=== PATIENT | female | born 1950 | race Caucasian/White ===

== ENCOUNTER 2018-12-26 15:13 | Outpatient (CLI) | payer OTHER, SELFPAY ==
--- NOTE | 2018-12-26 14:31 | DI.RAD_ITS ---
SYMPTOMS/DIAGNOSIS: LEFT RIB PAIN, R07.81, PLEURODYNIA; NON-PRODUCTIVE COUGH X 2 WEEKS PA AND LATERAL CHEST: The heart is not enlarged. The lungs appear generally clear. No pleural effusion seen. On the lateral view, there is a question of increased radiodensity with a vaguely mass-like appearance projected posteriorly in the mid thorax. This finding does not appear to have been present on previous chest film of 12/11/13. The findings could be related to increasing osteophyte formation in the thoracic spine; however, the possibility of posteriorly located pulmonary or mediastinal mass or thoracic aortic aneurysm is not excluded. Chest CT requested for correlation. CONCLUSION: Questionable mass-like finding seen posteriorly on lateral film. Chest CT requested to exclude mass or aortic aneurysm.
== END 2018-12-26 15:33 ==
PROVIDERS: PCP Emergency Medicine; Visit Provider Nurse Practitioner Family
DX: R07.81 Pleurodynia (principal); R05 Cough; R91.8 Other nonspecific abnormal finding of lung field
CPT/HCPCS: 71046

== ENCOUNTER 2018-12-27 10:13 | Outpatient (CLI) | payer OTHER, SELFPAY ==
[2018-12-27 12:27] LABS: Anion Gap 9.9 mmol/L (3-11); BUN 19 mg/dL (7-18); CO2 28.1 mmol/L (21.0-32.0); CREATININE 0.89 mg/dL (0.55-1.02); Calcium 9.1 mg/dL (8.5-10.1); Chloride 103 mmol/L (98-107); Glucose 94 mg/dL (70-100); Potassium 4.1 mmol/L (3.5-5.1); Sodium 141 mmol/L (136-145)
== END 2018-12-27 10:33 ==
PROVIDERS: PCP Emergency Medicine; Visit Provider Nurse Practitioner Family
DX: R07.81 Pleurodynia (principal)
CPT/HCPCS: 36415; 80048

== ENCOUNTER 2018-12-30 00:50 | Outpatient (CLI) | payer OTHER, SELFPAY ==
--- NOTE | 2018-12-30 10:57 | DI.CT_ITS ---
SYMPTOMS/DIAGNOSIS: MASS-LIKE FINDING ON CHEST X-RAY, ? MASS, ? THORACIC AORTIC ANEURYSM; RIB PAIN ON LEFT SIDE, PLEURODYNIA, R07.81 CT OF THE CHEST: Comparison is made with a chest x-ray dated December,, which questioned a mass on the lateral view. Post IV contrast exam was performed. There is no evidence of a mass or adenopathy. There are mild emphysematous changes. No infiltrates or effusions are seen. There are severe degenerative changes in the mid thoracic spine. There are prominent endplate osteophytes, as well as endplate sclerosis. This corresponds to the area of increased density seen on chest x-ray. There are mild atherosclerotic changes of the aorta. The heart size is normal. There is some fatty replacement of the head of the pancreas. The liver, gallbladder, spleen, adrenals and upper portions of the kidneys are unremarkable. IMPRESSION: Mass questioned on chest x-ray corresponds to severe degenerative changes of the mid thoracic spine. There are mild emphysematous changes but no acute abnormality.
[2018-12-30] MEDS: Omnipaque 350 MG/ML 100 ML BTL IJ (11:31)
== END 2018-12-30 01:10 ==
PROVIDERS: PCP Emergency Medicine; Visit Provider Nurse Practitioner Family
DX: R07.81 Pleurodynia (principal); M47.814 Spondylosis without myelopathy or radiculopathy, thoracic region; J43.8 Other emphysema
CPT/HCPCS: 71260; J3490

== ENCOUNTER 2019-03-21 02:20 | Outpatient (CLI) | payer OTHER, SELFPAY ==
[2019-03-21 09:54] LABS: Hemoglobin A1C 5.6 % (4.5-6.2)
[2019-03-21 10:42] LABS: ALT 26 U/L (12-78); AST 18 U/L (15-37); Albumin 3.8 g/dL (3.4-5.0); Alkaline Phosphatase 87 U/L (46-116); Anion Gap 10.2 mmol/L (3-11); BUN 14 mg/dL (7-18); Bilirubin, Total 0.5 mg/dL (0.2-1.0); CO2 26.8 mmol/L (21.0-32.0); CREATININE 0.72 mg/dL (0.55-1.02); Calcium 8.9 mg/dL (8.5-10.1); Calculated LDL 205 mg/dL; Chloride 104 mmol/L (98-107); Cholesterol 285 mg/dL (50-200); Glucose 94 mg/dL (70-100); HDL Cholesterol 66 mg/dL (40-60); Potassium 4.9 mmol/L (3.5-5.1); Sodium 141 mmol/L (136-145); Total Protein 6.7 g/dL (6.4-8.2); Triglyceride 74 mg/dL (30-150)
== END 2019-03-21 02:40 ==
PROVIDERS: PCP Emergency Medicine; Visit Provider Nurse Practitioner Family
DX: E78.5 Hyperlipidemia, unspecified (principal); I10 Essential (primary) hypertension
CPT/HCPCS: 36415; 80053; 80061; 83721; 83036

== ENCOUNTER 2019-03-24 09:42 | Outpatient (CLI) | payer OTHER, SELFPAY ==
--- NOTE | 2019-03-24 09:00 | DI.RAD_ITS ---
SYMPTOMS/DIAGNOSIS: LT KNEE PAIN, NEW TRAUMA LEFT KNEE: Four views. Comparison 12/17/17. No acute or healing fracture or dislocation is identified. There is mild periarticular spurring in the femoral tibial joint space. The bones are normally mineralized. The soft tissues are unremarkable. IMPRESSION: 1. No acute or healing fracture or dislocation. 2. Mild degenerative changes of the left knee.
== END 2019-03-24 10:02 ==
PROVIDERS: PCP Emergency Medicine; Visit Provider Student in an Organized Health Care Education/Training Program
DX: M25.562 Pain in left knee (principal); M17.12 Unilateral primary osteoarthritis, left knee
CPT/HCPCS: 73564

== ENCOUNTER 2019-04-15 00:20 | Outpatient (CLI) | payer OTHER, SELFPAY ==
--- NOTE | 2019-04-15 09:00 | DI.MRI_ITS ---
SYMPTOMS/DIAGNOSIS: SYNOVIAL CYST POPLITEAL, KNEE PAIN MRI OF THE LEFT KNEE: Comparison is made with plain films dated [id number]. Fat suppressed T 2 axial, proton density and fat suppressed T 2 coronal and sagittal and proton density oblique sagittal sequences were performed. There is a moderate sized joint effusion. There is a craig's cyst seen measuring 8 cm in length by 4.5 cm transverse by 3.3 cm AP. There is some edema in the anterior soft tissues. The extensor mechanism and patella appear intact. There is some thickening of the anterior cruciate ligament but no evidence of a complete tear. The findings could represent a sprain vs mucoid degeneration. The posterior cruciate ligament, medial and lateral collateral ligaments appear intact. The lateral meniscus is severely peripherally displaced consistent with degenerative changes. The anterior horn is severely degenerated. There is marked cartilage thinning extending down to and involving underlying bone. There is also cartilage thinning and irregularity over the lateral tibial plateau. There are milder degenerative changes of the medial meniscus and medial femoral tibial joint cartilage. There is also thinning and irregularity of the cartilage of the lateral patellar facet which does appear to extend down to bone. IMPRESSION: 1. Craig's cyst. 2. 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 3. ACL sprain vs mucoid degeneration.
== END 2019-04-15 00:40 ==
PROVIDERS: PCP Emergency Medicine; Visit Provider Student in an Organized Health Care Education/Training Program
DX: M25.562 Pain in left knee (principal); M71.22 Synovial cyst of popliteal space [Baker], left knee; M17.12 Unilateral primary osteoarthritis, left knee; M94.262 Chondromalacia, left knee
CPT/HCPCS: 73721

== ENCOUNTER 2019-04-25 00:42 | Outpatient (CLI) | payer OTHER, SELFPAY ==
--- NOTE | 2019-04-25 13:08 | DI.US_ITS ---
SYMPTOMS/DIAGNOSIS: HYPERLIPIDEMIA, E78.5, ? CAROTID ARTERY STENOSIS BILATERAL DUPLEX CAROTID ULTRASOUND: Duplex evaluation of the carotid circulation was performed according to the usual protocol. There is little if any visible atheromatous plaque in the carotid circulation. Flow velocities in common internal and external carotid arteries are within normal limits bilaterally. There is bilateral antegrade vertebral flow. CONCLUSION: No evidence of a hemodynamically significant carotid stenosis.
--- NOTE | 2019-04-25 13:08 | DI.MAMMO_ITS ---
SYMPTOMS/DIAGNOSIS: SCREENING, Z12.31 MAMMOGRAM: Mammograms were interpreted according to the usual protocol including computer analysis with CAD system, tomosynthesis and C view imaging. The breasts are of moderate density with fairly symmetrical distribution of fibroglandular tissue. No dominant mass or clumped microcalcification is identified in either breast. The current examination is compared with previous examinations including December 2015 and there has been no gross interval change in appearance in comparison with the previous studies. CONCLUSION: No specific evidence of malignancy at this time. Routine screening examinations are suggested at yearly intervals in this age group according to the ACS/ACR guidelines. Category I. Breast density Category B. MQSA ASSESSMENT OF FINDINGS: Negative. Category 1. Patient will receive a letter notifying them of these results. BI-RADS category B. There are scattered areas of fibroglandular density.
== END 2019-04-25 01:02 ==
PROVIDERS: PCP Emergency Medicine; Visit Provider Nurse Practitioner Family
DX: Z12.31 Encounter for screening mammogram for malignant neoplasm of breast (principal); E78.5 Hyperlipidemia, unspecified; Z13.6 Encounter for screening for cardiovascular disorders
CPT/HCPCS: 77063; 77067; 93880